=== PATIENT | female | born 1960 | race American Indian/Alaskan Native ===

== ENCOUNTER 2019-11-04 10:58 | Day surgery (SDC) | payer BC ==
[~2019-11-04 10:58] MED LIST: APRACLONIDINE 1% OPHTH SOLN DROPERETTE ONE; PHENYLEPHRINE 10% OPHTH SOLN 5 ML ONE; TROPICAMIDE 1% OPHTH SOLN 3 ML ONE
[2019-11-04] MEDS ORDERED: TROPICAMIDE 1% OPHTH SOLN 3 ML OD ONE (11:39)
[2019-11-04] MEDS ORDERED: APRACLONIDINE 1% OPHTH SOLN DROPERETTE OD ONE (11:39)
[2019-11-04] MEDS ORDERED: PHENYLEPHRINE 10% OPHTH SOLN 5 ML OD ONE (11:39)
[2019-11-04 12:58] VITALS: BP 155/65
== END 2019-11-04 10:59 | disposition home or self-care (01) ==
LOC: OR 10:58
PROVIDERS: ATTEND Specialist
DX: E13.36 Other specified diabetes mellitus with diabetic cataract (principal); H26.491 Other secondary cataract, right eye; E13.649 Other specified diabetes mellitus with hypoglycemia without coma; E78.00 Pure hypercholesterolemia, unspecified; Z79.899 Other long term (current) drug therapy; Z79.4 Long term (current) use of insulin; Z98.41 Cataract extraction status, right eye; Z98.42 Cataract extraction status, left eye; Z86.2 Personal history of diseases of the blood and blood-forming organs and certain disorders involving the immune mechanism
CPT/HCPCS: 82962